=== PATIENT | male | born 1990 | race Caucasian/White ===

== ENCOUNTER 2017-10-01 18:14 | Inpatient (IN) | payer SELFPAY ==
[~2017-10-01] VITALS: Ht 182.9 cm; Wt 78.0 kg
[~2017-10-01 18:14] MED LIST: CEPH500C3 PO
[2017-10-01] MEDS ORDERED: IOHEXOL 350 MG/ML 10 ML VIAL (for RAD DIAG) IVCONTRAST ONE (18:15)
[2017-10-01 18:34] VITALS: BP 162/82; PULSE 111; RESP 16; TEMP 98.6; O2SAT 98
[2017-10-01] MEDS ORDERED: SODIUM CHLOR 0.9% 1000 ML INJ 1,000 ML IV ONE ×2 (20:37)
[2017-10-01] MEDS ORDERED: ONDANSETRON HCL 4 MG/2 ML VIAL IV PUSH ONE (20:45)
[2017-10-01] MEDS ORDERED: HYDROmorphone HCL PF 1 MG/ML VIAL IV PUSH ONE (20:45)
--- NOTE | 2017-10-01 20:49 | PD ---
HPI Chief Complaint: Eye Problems/Injury Time Seen by Provider: 20:33 Travel History International Travel<30 days: No Contact w/Intl Traveler<30days: No Traveled to known affect area: No History of Present Illness HPI Patient is a 27-year-old male presenting to emerge department for evaluation of right eye pain and swelling. Patient states 3 days ago he noticed a small pimple to the upper eyelid, it progressed getting larger and more painful and more erythematous. He went to [facility] 2 days ago and was admitted likely for periorbital cellulitis. They wanted to transfer him to [place] per his report, he reports that he did not want to go to [place] so he left [place] and presented here. Patient has paper with him that reports he was on doxycycline and ampicillin. He left AMA yesterday afternoon and has not had any antibiotics in 24 hours. He reports his pain is 8 out of 10, it is aching and throbbing. He denies any documented fevers but reports chills. Symptom onset was sudden, symptoms are severe. He denies any significant pain with eye movement, he states he cannot open his eyelid at all. He denies any IV drug use. He further denies any significant past medical history. [facility] Past Medical History Medical History: Denies Significant Hx Diminished Hearing: No ?: Not Social History Alcohol Use: Yes (OCCASIONAL) Tobacco Use: Yes (1/2 PPD) Substance Use: No (PT DENIES) Allergies-Medications (Allergen,Severity, Reaction): Coded Allergies: No Known Allergies (Verified Allergy, Unknown, 10/01/17) Reported Meds & Prescriptions Reported Meds & Active Scripts Active No Active Prescriptions or Reported Medications Review of Systems Except as stated in HPI: all other systems reviewed are Neg General / Constitutional: Positive: Chills Eyes: Positive: Drainage, Redness, Pain HENT: No: Headaches Cardiovascular: Positive: Tachycardia, No: Chest Pain or Discomfort Respiratory: No: Shortness of Breath Gastrointestinal: No: Nausea, Vomiting, Abdominal Pain Physical Exam Narrative GENERAL: Well-developed, well-nourished, alert male. Appears comfortable, no acute distress. SKIN: Warm and dry. HEAD: Atraumatic. Normocephalic. EYES: Pupils equal and round. No scleral icterus. No injection or drainage. Right upper lower eyelids are edematous and erythematous. There is significant fluctuance noted to the right upper eyelid with scant purulent drainage noted on bandage. Tender to palpation. Cannot manually open eyelid due to swelling. Mild erythema noted to right cheek. ENT: No nasal bleeding or discharge. Mucous membranes pink and moist. NECK: Trachea midline. No JVD. CARDIOVASCULAR: Regular rate and rhythm. RESPIRATORY: No accessory muscle use. Clear to auscultation. Breath sounds equal bilaterally. GASTROINTESTINAL: Abdomen soft, non-tender, nondistended. Hepatic and splenic margins not palpable. MUSCULOSKELETAL: Extremities without clubbing, cyanosis, or edema. No obvious deformities. NEUROLOGICAL: Awake and alert. No obvious cranial nerve deficits. Motor grossly within normal limits. Five out of 5 muscle strength in the arms and legs. Normal speech. PSYCHIATRIC: Appropriate mood and affect; insight and judgment normal. Data Data Last Documented VS Vital Signs Date Time Temp Pulse Resp B/P (MAP) Pulse Ox O2 Delivery O2 Flow Rate FiO2 10/01/17 22:42 16 98 Room Air 10/01/17 22:42 83 116/65 (82) 10/01/17 18:34 98.6 Orders Orders Sepsis Workup Initiated (10/01/17 ) Complete Blood Count With Diff (10/01/17 20:37) Comprehensive Metabolic Panel (10/01/17 20:37) Prothrombin Time / Inr (Pt) (10/01/17 20:37) Act Partial Throm Time (Ptt) (10/01/17 20:37) Lactic Acid Sepsis Protocol (10/01/17 20:37) Blood Culture (10/01/17 20:37) Ecg Monitoring (10/01/17 20:37) Iv Access Insert/Monitor (10/01/17 20:37) Oximetry (10/01/17 20:37) Ondansetron Inj (Zofran Inj) (10/01/17 20:45) Sodium Chlor 0.9% 1000 Ml Inj (Ns 1000 M (10/01/17 20:37) Sodium Chlor 0.9% 1000 Ml Inj (Ns 1000 M (10/01/17 20:37) Wound Culture And Gram Stain (10/01/17 20:37) Ct Orbits W Iv Contrast (10/01/17 ) Hydromorphone Pf Inj (Dilaudid Pf Inj) (10/01/17 21:45) Vancomycin Inj (Vancomycin Inj) (10/01/17 22:30) Piperacil-Tazo 4.5 Gm Premix (Zosyn 4.5 (10/01/17 22:30) Iohexol 350 Inj (Omnipaque 350 Inj) (10/01/17 18:15) Hydromorphone Pf Inj (Dilaudid Pf Inj) (10/02/17 00:00) Vancomycin Consult Pharmacy (Vancomycin (10/02/17 00:30) Piperacil-Tazo 4.5 Gm Premix (Zosyn 4.5 (10/02/17 04:00) Acetamin-Hydrocod 325-10 Mg ([place] 10-32 (10/02/17 00:30) Naloxone Inj (Narcan Inj) (10/02/17 00:30) Admit To Inpatient (10/02/17 ) Vital Signs (Adult) Q4H (10/02/17 00:20) Activity Oob Ad Gudelia (10/02/17 00:20) Diet Regular Basic (10/02/17 Breakfast) Sodium Chlor 0.9% 1000 Ml Inj (Ns 1000 M (10/02/17 01:00) Sodium Chloride 0.9% Flush (Ns Flush) (10/02/17 00:30) Sodium Chloride 0.9% Flush (Ns Flush) (10/02/17 09:00) Comprehensive Metabolic Panel (10/03/17 06:00) Complete Blood Count With Diff (10/03/17 06:00) Scd Bilateral/Knee High [place].BID (10/02/17 00:20) Naloxone Inj (Narcan Inj) (10/02/17 00:30) Docusate Sodium-Senna (Yara-Colace) (10/02/17 09:00) Magnesium Hydroxide Liq (Milk Of Magnesi (10/02/17 00:30) Sennosides (Senokot) (10/02/17 00:30) Bisacodyl Supp (Dulcolax Supp) (10/02/17 00:30) Lactulose Liq (Lactulose Liq) (10/02/17 00:30) Inpatient Certification (10/02/17 ) Acetamin-Hydrocod 325-5 Mg ([place] 5-325 (10/02/17 00:30) Admit Order (Ed Use Only) (10/02/17 00:25) Labs Laboratory Tests Test 10/01/17 21:30 White Blood Count 14.2 TH/MM3 Red Blood Count 4.36 MIL/MM3 Hemoglobin 12.1 GM/DL Hematocrit 35.3 % Mean Corpuscular Volume 80.9 FL Mean Corpuscular Hemoglobin 27.7 PG Mean Corpuscular Hemoglobin Concent 34.2 % Red Cell Distribution Width 13.9 % Platelet Count 395 TH/MM3 Mean Platelet Volume 7.4 FL Neutrophils (%) (Auto) 65.5 % Lymphocytes (%) (Auto) 22.6 % Monocytes (%) (Auto) 9.4 % Eosinophils (%) (Auto) 1.9 % Basophils (%) (Auto) 0.6 % Neutrophils # (Auto) 9.3 TH/MM3 Lymphocytes # (Auto) 3.2 TH/MM3 Monocytes # (Auto) 1.3 TH/MM3 Eosinophils # (Auto) 0.3 TH/MM3 Basophils # (Auto) 0.1 TH/MM3 CBC Comment DIFF FINAL Differential Comment Prothrombin Time 10.5 SEC Prothromb Time International Ratio 1.0 RATIO Activated Partial Thromboplast Time 27.0 SEC Blood Urea Nitrogen 10 MG/DL Creatinine 0.85 MG/DL Random Glucose 91 MG/DL Total Protein 8.4 GM/DL Albumin 3.4 GM/DL Calcium Level 9.1 MG/DL Alkaline Phosphatase 103 U/L Aspartate Amino Transf (AST/SGOT) 22 U/L Alanine Aminotransferase (ALT/SGPT) 40 U/L Total Bilirubin 0.2 MG/DL Sodium Level 137 MEQ/L Potassium Level 4.1 MEQ/L Chloride Level 101 MEQ/L Carbon Dioxide Level 28.2 MEQ/L Anion Gap 8 MEQ/L Estimat Glomerular Filtration Rate 108 ML/MIN Lactic Acid Level 0.7 mmol/L MDM Medical Decision Making Medical Screen Exam Complete: Yes Emergency Medical Condition: Yes Interpretation(s) Vital Signs Date Time Temp Pulse Resp B/P (MAP) Pulse Ox O2 Delivery O2 Flow Rate FiO2 10/01/17 18:34 98.6 111 16 162/82 (108 98 Differential Diagnosis Abscess versus cellulitis versus periorbital cellulitis versus anabolic abnormality versus other Narrative Course Patient is a 27-year-old male presenting to the emergency department for evaluation of right eye pain and swelling. Edema to the right upper eyelid appears consistent with an abscess. There is significant fluctuance noted. Labs and imaging ordered and pending. Medications ordered for pain. CBC with a white count of 14.2. Chemistry is unremarkable, lactic acid 0.7 CT scan shows large subcutaneous abscess in the soft tissues superficial to the right orbit. No significant edema or inflammation is identified in the orbit or around the extraocular musculature. Abscess is described as a multiloculated abscess in the sub-cutaneous fat measuring 4.7 x 1.8 cm across. Abscess was drained, please see procedure report. Wound culture collected and pending. Patient was given additional dose of pain medicine Patient was started on vancomycin and Zosyn. [facility] paged for admission. Discussed with Dr. Brady who accepted admission. Patient was admitted with preseptal cellulitis/sepsis. Procedures Procedure Narrative After the risks and benefits were discussed the following procedure was performed: INCISION AND DRAINAGE OF ABSCESS: The area was prepped and was sterilely draped. A subcutaneous wheal of 1 % Xylocaine with a total number 1 mL was used to anesthetize the area. The area was properly anesthetized. A number 11 scalpel was used to make a 1 -cm incision across the area of the abscess. Cultures were obtained. The abscess was drained an irrigated with normal saline. Sterile dressing applied. Patient advised to have packing removed in two days. Sepsis Criteria SIRS Criteria (2 or more): Heart rate over 90, WBC > 35471, < 4000 or > 10% bands Sepsis Criteria (SIRS+source): Infect source susp/known Diagnosis Primary Impression: Sepsis Qualified Codes: A41.9 - Sepsis, unspecified organism Additional Impression: Preseptal cellulitis of right eye Admitting Information Admitting Physician Requests: Admit Scripts No Active Prescriptions or Reported Meds Condition: Pema Gómez INSTALLATION ENGINEER October 01, 2017 20:49
[2017-10-01] MEDS ORDERED: HYDROmorphone HCL PF 0.5 MG/0.5 ML SYRINGE IV PUSH ONE (21:45)
[2017-10-01 21:49] LABS: AUTOMATED NEUTROPHIL # 9.3 TH/MM3 (1.8-7.7); BASOPHIL # 0.1 TH/MM3 (0-0.2); BASOPHIL % 0.6 % (0.0-2.0); EOSINOPHIL # 0.3 TH/MM3 (0-0.4); EOSINOPHIL % 1.9 % (0.0-4.0); HEMATOCRIT 35.3 % (39.0-51.0); HEMOGLOBIN 12.1 GM/DL (13.0-17.0); LYMPH % 22.6 % (9.0-44.0); LYMPHOCYTE # 3.2 TH/MM3 (1.0-4.8); MEAN CELL VOLUME 80.9 FL (80.0-100.0); MEAN CORPUSCULAR HEMOGLOBIN 27.7 PG (27.0-34.0); MEAN CORPUSCULAR HGB CONC 34.2 % (32.0-36.0); MEAN PLATELET VOLUME 7.4 FL (7.0-11.0); MONO % 9.4 % (0.0-8.0); MONOCYTE # 1.3 TH/MM3 (0-0.9); NEUT % 65.5 % (16.0-70.0); PLATELET COUNT 395 TH/MM3 (150-450); RED BLOOD COUNT 4.36 MIL/MM3 (4.50-5.90); RED CELL DISTRIBUTION WIDTH 13.9 % (11.6-17.2); WHITE BLOOD COUNT 14.2 TH/MM3 (4.0-11.0)
--- NOTE | 2017-10-01 21:53 | PD ---
Physical Exam Narrative I, Dr. Aguilar, have reviewed the advance practice practitioner's documentation and am in agreement, met with the patient face to face, made the diagnosis, and the medical decision making was done by me. *My assessment and Findings: Abscess vs. orbital cellulitis 27yo M with marked right eye edema and redness for a few days. Pt said it started out like a bug bite and was admitted to [facility]. As per patient, pt had IV antibiotics and was there for about 24 hours when they told him that they need to transfer him to [place] for ophthalmology or he can sign out AMA and come here. Pt does not want to go to [place] signed out AMA. Denies any trauma to eye. Labs reviewed, leukocytosis at 14.2. Lactic acid normal. Pt was initially tachycardic and covered with broad spectrum antibiotics. CT facial showed large subcutaneous abscess in the soft tissue superficial to right orbit. No significant edema or inflammation is identified in the orbit or around the extraocular musculature. I&D performed by my HIGH SCHOOL HISTORY TEACHER. Given the significance of it, will admit for sepsis and IV antibiotics and ophthalmology consult. Data Data Last Documented VS Vital Signs Date Time Temp Pulse Resp B/P (MAP) Pulse Ox O2 Delivery O2 Flow Rate FiO2 10/01/17 22:42 16 98 Room Air 10/01/17 22:42 83 116/65 (82) 10/01/17 18:34 98.6 Orders Orders Sepsis Workup Initiated (10/01/17 ) Complete Blood Count With Diff (10/01/17 20:37) Comprehensive Metabolic Panel (10/01/17 20:37) Prothrombin Time / Inr (Pt) (10/01/17 20:37) Act Partial Throm Time (Ptt) (10/01/17 20:37) Lactic Acid Sepsis Protocol (10/01/17 20:37) Blood Culture (10/01/17 20:37) Ecg Monitoring (10/01/17 20:37) Iv Access Insert/Monitor (10/01/17 20:37) Oximetry (10/01/17 20:37) Ondansetron Inj (Zofran Inj) (10/01/17 20:45) Sodium Chlor 0.9% 1000 Ml Inj (Ns 1000 M (10/01/17 20:37) Sodium Chlor 0.9% 1000 Ml Inj (Ns 1000 M (10/01/17 20:37) Wound Culture And Gram Stain (10/01/17 20:37) Ct Orbits W Iv Contrast (10/01/17 ) Hydromorphone Pf Inj (Dilaudid Pf Inj) (10/01/17 21:45) Vancomycin Inj (Vancomycin Inj) (10/01/17 22:30) Piperacil-Tazo 4.5 Gm Premix (Zosyn 4.5 (10/01/17 22:30) Iohexol 350 Inj (Omnipaque 350 Inj) (10/01/17 18:15) Vancomycin Consult Pharmacy (Vancomycin (10/02/17 00:30) Piperacil-Tazo 4.5 Gm Premix (Zosyn 4.5 (10/02/17 04:00) Acetamin-Hydrocod 325-10 Mg ([place] 10-32 (10/02/17 00:30) Naloxone Inj (Narcan Inj) (10/02/17 00:30) Admit To Inpatient (10/02/17 ) Vital Signs (Adult) Q4H (10/02/17 00:20) Activity Oob Ad Gudelia (10/02/17 00:20) Diet Regular Basic (10/02/17 Breakfast) Sodium Chlor 0.9% 1000 Ml Inj (Ns 1000 M (10/02/17 01:00) Sodium Chloride 0.9% Flush (Ns Flush) (10/02/17 00:30) Sodium Chloride 0.9% Flush (Ns Flush) (10/02/17 09:00) Comprehensive Metabolic Panel (10/03/17 06:00) Complete Blood Count With Diff (10/03/17 06:00) Scd Bilateral/Knee High [place].BID (10/02/17 00:20) Naloxone Inj (Narcan Inj) (10/02/17 00:30) Docusate Sodium-Senna (Yara-Colace) (10/02/17 09:00) Magnesium Hydroxide Liq (Milk Of Magnesi (10/02/17 00:30) Sennosides (Senokot) (10/02/17 00:30) Bisacodyl Supp (Dulcolax Supp) (10/02/17 00:30) Lactulose Liq (Lactulose Liq) (10/02/17 00:30) Inpatient Certification (10/02/17 ) Acetamin-Hydrocod 325-5 Mg ([place] 5-325 (10/02/17 00:30) Admit Order (Ed Use Only) (10/02/17 00:25) Labs Laboratory Tests Test 10/01/17 21:30 White Blood Count 14.2 TH/MM3 Red Blood Count 4.36 MIL/MM3 Hemoglobin 12.1 GM/DL Hematocrit 35.3 % Mean Corpuscular Volume 80.9 FL Mean Corpuscular Hemoglobin 27.7 PG Mean Corpuscular Hemoglobin Concent 34.2 % Red Cell Distribution Width 13.9 % Platelet Count 395 TH/MM3 Mean Platelet Volume 7.4 FL Neutrophils (%) (Auto) 65.5 % Lymphocytes (%) (Auto) 22.6 % Monocytes (%) (Auto) 9.4 % Eosinophils (%) (Auto) 1.9 % Basophils (%) (Auto) 0.6 % Neutrophils # (Auto) 9.3 TH/MM3 Lymphocytes # (Auto) 3.2 TH/MM3 Monocytes # (Auto) 1.3 TH/MM3 Eosinophils # (Auto) 0.3 TH/MM3 Basophils # (Auto) 0.1 TH/MM3 CBC Comment DIFF FINAL Differential Comment Prothrombin Time 10.5 SEC Prothromb Time International Ratio 1.0 RATIO Activated Partial Thromboplast Time 27.0 SEC Blood Urea Nitrogen 10 MG/DL Creatinine 0.85 MG/DL Random Glucose 91 MG/DL Total Protein 8.4 GM/DL Albumin 3.4 GM/DL Calcium Level 9.1 MG/DL Alkaline Phosphatase 103 U/L Aspartate Amino Transf (AST/SGOT) 22 U/L Alanine Aminotransferase (ALT/SGPT) 40 U/L Total Bilirubin 0.2 MG/DL Sodium Level 137 MEQ/L Potassium Level 4.1 MEQ/L Chloride Level 101 MEQ/L Carbon Dioxide Level 28.2 MEQ/L Anion Gap 8 MEQ/L Estimat Glomerular Filtration Rate 108 ML/MIN Lactic Acid Level 0.7 mmol/L [facility] Supervised Visit with SINDY: Yes Diagnosis Primary Impression: Preseptal cellulitis of right eye Admitting Information Admitting Physician Requests: Admit Scripts No Active Prescriptions or Reported Meds Jennifer Aguilar DO October 01, 2017 21:53
[2017-10-01 22:01] LABS: ALBUMIN 3.4 GM/DL (3.4-5.0); AST (GOT) 22 U/L (15-37); BICARBONATE 28.2 MEQ/L (21.0-32.0); BLOOD UREA NITROGEN 10 MG/DL (7-18); CALCIUM 9.1 MG/DL (8.5-10.1); CHLORIDE 101 MEQ/L (98-107); CREATININE 0.85 MG/DL (0.60-1.30); GLOMERULAR FILTRATION RATE 108 ML/MIN (>89); GLUCOSE,RANDOM 91 MG/DL (74-106); SODIUM (NA) 137 MEQ/L (136-145)
[2017-10-01 22:02] LABS: PROTHROMBIN TIME - PATIENT 10.5 SEC (9.8-11.6)
[2017-10-01 22:03] LABS: ALT (GPT) 40 U/L (12-78)
[2017-10-01 22:04] LABS: ALKALINE PHOSPHATASE 103 U/L (45-117); TOTAL BILIRUBIN ADULT 0.2 MG/DL (0.2-1.0); TOTAL PROTEIN 8.4 GM/DL (6.4-8.2)
[2017-10-01] MEDS ORDERED: VANCOMYCIN INJ 1,000 MG in SODIUM CHLOR 0.9% 250 ML INJ 250 ML IV ONE (22:30)
[2017-10-01] MEDS ORDERED: PIPERACIL-TAZO 4.5 GM PREMIX 100 ML IV ONE (22:30)
[2017-10-01 22:42] VITALS: BP 116/65; PULSE 83; RESP 16; O2SAT 97; O2SAT 98
--- NOTE | 2017-10-01 23:11 | RADRPT ---
EXAM DATE/TIME: 10/01/2017 22:12 [place] COMPARISON: No previous studies available for comparison. INDICATIONS : Periorbital Cellulitis. IV CONTRAST: 70 cc Omnipaque 350 (iohexol) IV RADIATION DOSE: 22.62 CTDIvol (mGy) MEDICAL HISTORY : None SURGICAL HISTORY : None. ENCOUNTER: Initial ACUITY: 1 day PAIN SCALE: 4/10 LOCATION: Right facial TECHNIQUE: Volumetric scanning of the orbits was performed. Using automated exposure control and adjustment of the mA and/or kV according to patient size, radiation dose was kept as low as reasonably achievable t o obtain optimal diagnostic quality images. DICOM format image data is available electronically for review and comparison. FINDINGS: PRESEPTAL: There is in significant soft tissue edema and fullness anterior to the right orbit including what meseret ears to be a multiloculated abscess in the subcutaneous fat 4.7 x 1.8 cm across GLOBES: Normal shape without wall thickening. The lens is grossly intact. EXTRAOCULAR MUSCLES: Symmetric and normal thickness. ORBITAL CHRISTIAN: Intact. The greater wing of the sphenoid is intact. OPTIC NERVES: Normal size. The optic canal is not enlarged. The retroconal fat is normal in appearance. LACRIMAL GLANDS: No evidence of mass. RETROAPIACL REGION: The optic chiasm is grossly intact. The visualized portion of the cavernous sinus and brainstem is i ntact. CONCLUSION: Large subcutaneous abscess in the soft tissues superficial to the right orbit. No significant edema o r inflammation is identified in the orbit or around the extraocular musculature. Cliff Johnson MD on October 01, 2017 at 23:07 Board Certified Radiologist. This report was verified electronically.
[2017-10-02] MEDS ORDERED: HYDROmorphone HCL PF 1 MG/ML VIAL IV PUSH ONE
[2017-10-02] MEDS ORDERED: ACETAMINOPHEN/HYDROcodone 325 MG/5 MG TAB PO PRN (00:30)
[2017-10-02] MEDS ORDERED: MAGNESIUM HYDROXIDE SUSP 30 ML CUP PO PRN (00:30)
[2017-10-02] MEDS ORDERED: SODIUM CHLORIDE 0.9% FLUSH 10 ML FLUSH IV FLUSH PRN (00:30)
[2017-10-02] MEDS ORDERED: BISACODYL 10 MG SUPP RECTAL PRN (00:30)
[2017-10-02] MEDS ORDERED: LACTULOSE SYRUP 20 GM/30 ML CUP PO PRN (00:30)
[2017-10-02] MEDS ORDERED: SENNOSIDES 8.6 MG TAB PO PRN (00:30)
[2017-10-02] MEDS ORDERED: Vancomycin Consult Pharmacy 1 EA OTHER SCH (00:30)
[2017-10-02] MEDS ORDERED: NALOXONE HCL 0.4 MG/ML AMP IV PUSH PRN ×2 (00:30)
[2017-10-02] MEDS ORDERED: HYDROmorphone HCL PF 0.5 MG/0.5 ML SYRINGE IV PUSH ONE (00:45)
[2017-10-02] MEDS: SODIUM CHLOR 0.9% 1000 ML INJ 1,000 ML IV SCH ×2 (01:00→12:46)
--- NOTE | 2017-10-02 01:41 | HHI.HP ---
HPI Service [facility] Primary Care Physician No Primary Care Physician Admission Diagnosis PRESEPTAL CELLULITIS/SEPSIS Diagnoses: Travel History International Travel<30 Days: No Contact w/Intl Traveler <30 Da: No Traveled to Known Affected Are: No History of Present Illness 27-year-old male with no significant past medical history who presents with a 2 day history of constant right forehead pain, nonradiating, with closure of right eyelid unable to open. Patient denies any injury or pimple at this location. Patient denies any pain with right or left gaze. Patient apparently was seen at [facility], and he says they told him that he could either be transferred to [place] so he could see an clock and watch hands dipper, or discharge AGAINST MEDICAL ADVICE and come here; he chose the latter. Patient denies any fevers, chills, chest pain, shortness of breath, nausea, vomiting, lightheadedness, dizziness. In the ER, right superficial abscess over the right eyebrow has been incised and drained. Cultures have been sent. Review of Systems Except as stated in HPI: all other systems reviewed are Neg Past Family Social History Past Medical History Patient denies any past medical history Past Surgical History Left arm artery surgery secondary to injury Reported Medications Patient denies taking any medications. Allergies: Coded Allergies: No Known Allergies (Verified Allergy, Unknown, 10/01/17) Family History Patient reports both parents are healthy Social History Patient smokes one half pack per day for the past 4 years. Denies alcohol. Patient drinks marijuana on a regular basis. Denies any cocaine or IV drug use. Physical Exam Vital Signs Vital Signs Date Time Temp Pulse Resp B/P (MAP) Pulse Ox O2 Delivery O2 Flow Rate FiO2 10/01/17 22:42 16 98 Room Air 10/01/17 22:42 83 16 116/65 (82) 97 Room Air 10/01/17 18:34 98.6 111 16 162/82 (108) 98 Physical Exam GENERAL: This is a well-nourished, well-developed patient, in no apparent distress. Alert and oriented 3. SKIN: No rashes, ecchymoses or lesions. Cool and dry. HEAD: Atraumatic. Normocephalic. No temporal or scalp tenderness. EYES: Left pupil is reactive. Right eyelid edematous, closed shut, with erythema and induration over the entire right eyebrow, status post incision and drainage. ENT: Nose without bleeding, purulent drainage or septal hematoma. Throat without erythema, tonsillar hypertrophy or exudate. Uvula midline. Airway patent. NECK: Trachea midline. No JVD or lymphadenopathy. Supple, nontender, no meningeal signs. CARDIOVASCULAR: Regular rate and rhythm without murmurs, gallops, or rubs. RESPIRATORY: Clear to auscultation. Breath sounds equal bilaterally. No wheezes , rales, or rhonchi. GASTROINTESTINAL: Abdomen soft, non-tender, nondistended. No hepato-splenomegaly , or palpable masses. No guarding. MUSCULOSKELETAL: Extremities without clubbing, cyanosis, or edema. No joint tenderness, effusion, or edema noted. No calf tenderness. Negative Homans sign bilaterally. NEUROLOGICAL: Awake and alert. Cranial nerves II through XII intact. Motor and sensory grossly within normal limits. Five out of 5 muscle strength in all muscle groups. Normal speech. Laboratory Laboratory Tests Test 10/01/17 21:30 White Blood Count 14.2 Red Blood Count 4.36 Hemoglobin 12.1 Hematocrit 35.3 Mean Corpuscular Volume 80.9 Mean Corpuscular Hemoglobin 27.7 Mean Corpuscular Hemoglobin Concent 34.2 Red Cell Distribution Width 13.9 Platelet Count 395 Mean Platelet Volume 7.4 Neutrophils (%) (Auto) 65.5 Lymphocytes (%) (Auto) 22.6 Monocytes (%) (Auto) 9.4 Eosinophils (%) (Auto) 1.9 Basophils (%) (Auto) 0.6 Neutrophils # (Auto) 9.3 Lymphocytes # (Auto) 3.2 Monocytes # (Auto) 1.3 Eosinophils # (Auto) 0.3 Basophils # (Auto) 0.1 CBC Comment DIFF FINAL Differential Comment Prothrombin Time 10.5 Prothromb Time International Ratio 1.0 Activated Partial Thromboplast Time 27.0 Blood Urea Nitrogen 10 Creatinine 0.85 Random Glucose 91 Total Protein 8.4 Albumin 3.4 Calcium Level 9.1 Alkaline Phosphatase 103 Aspartate Amino Transf (AST/SGOT) 22 Alanine Aminotransferase (ALT/SGPT) 40 Total Bilirubin 0.2 Sodium Level 137 Potassium Level 4.1 Chloride Level 101 Carbon Dioxide Level 28.2 Anion Gap 8 Estimat Glomerular Filtration Rate 108 Lactic Acid Level 0.7 Date/Time Source Procedure Growth Status 10/01/17 21:55 Blood Peripheral Aerobic Blood Culture Pending Received 10/01/17 21:55 Blood Peripheral Anaerobic Blood Culture Pending Received 10/02/17 00:20 Wound Face Gram Stain Pending Received 10/02/17 00:20 Wound Face Wound Culture Pending Received Result Diagram: 10/01/17212910/01/172129 Imaging Last Impressions Orbit CT 10/01/17 0000 Signed Impressions: Service Date/Time: Sunday, October 01, 2017 22:12 - CONCLUSION: Large subcutaneous abscess in the soft tissues superficial to the right orbit. No significant edema or inflammation is identified in the orbit or around the extraocular musculature. MD Sarah Godoy VTE Risk Assessment Sarah VTE Risk Assessment: No/Low Risk (score <= 1) Caprini Risk Assessment Model Point Value = 1 Point Value = 2 Point Value = 3 Point Value = 5 Age 41-60 Minor surgery BMI > 25 kg/m2 Swollen legs Varicose veins or History of unexplained or recurrent spontaneous Oral contraceptives or hormone replacement Sepsis (< 1 month) Serious lung disease, including pneumonia (< 1 month) Abnormal pulmonary function Acute myocardial infarction Congestive heart failure (< 1 month) History of inflammatory bowel disease Medical patient at bed rest Age 61-74 Arthroscopic surgery Major open surgery (> 45 min) Laparoscopic surgery (> 45 min) Malignancy Confined to bed (> 72 hours) Immobilizing plaster cast Central venous access Age >= 75 History of VTE Family history of VTE Factor V Leiden Prothrombin [id number] Lupus anticoagulant Anticardiolipin antibodies Elevated serum homocysteine Heparin-induced thrombocytopenia Other congenital or acquired thrombophilia Stroke (< 1 month) Elective arthroplasty Hip, pelvis, or leg fracture Acute spinal cord injury (< 1 month) Prophylaxis Regimen Total Risk Factor Score Risk Level Prophylaxis Regimen 0-1 Low Early ambulation 2 Moderate Order ONE of the following: *Sequential Compression Device (SCD) *Heparin 5000 units SQ BID 3-4 Higher Order ONE of the following medications: *Heparin 5000 units SQ TID *Enoxaparin/Lovenox 40 mg SQ daily (WT < 150 kg, CrCl > 30 mL/min) *Enoxaparin/Lovenox 30 mg SQ daily (WT < 150 kg, CrCl > 10-29 mL/min) *Enoxaparin/Lovenox 30 mg SQ BID (WT < 150 kg, CrCl > 30 mL/min) AND/OR *Sequential Compression Device (SCD) 5 or more Highest Order ONE of the following medications: *Heparin 5000 units SQ TID (Preferred with Epidurals) *Enoxaparin/Lovenox 40 mg SQ daily (WT < 150 kg, CrCl > 30 mL/min) *Enoxaparin/Lovenox 30 mg SQ daily (WT < 150 kg, CrCl > 10-29 mL/min) *Enoxaparin/Lovenox 30 mg SQ BID (WT < 150 kg, CrCl > 30 mL/min) AND *Sequential Compression Device (SCD) Assessment and Plan Assessment and Plan //Sepsis //Right sided facial abscess superficial to right orbit. Suspected MRSA. -CT shows superficial abscess over the right eyebrow, however no sign of orbital cellulitis. Nonetheless in a very dangerous location and will require monitoring. -Leukocytosis, tachycardia. Right subcutaneous abscess overlying the right orbit. = Status post incision and drainage. Follow-up cultures = Broad-spectrum antibiotics vancomycin to cover MRSA, Zosyn to cover gram negatives and anaerobes. //Tobaccoism. Cessation counseling provided. //Marijuana use. Cessation counseling provided Discussed Condition With Patient, nurse, ED physician. Physician Certification 2 Midnight Certification Type: Admission for Inpatient Services Order for Inpatient Services The services are ordered in accordance with Medicare regulations or non- Medicare payer requirements, as applicable. In the case of services not specified as inpatient-only, they are appropriately provided as inpatient services in accordance with the 2-midnight benchmark. Estimated LOS (days): 2 days is the estimated time the patient will need to remain in the hospital, assuming treatment plan goals are met and no additional complications. Post-Hospital Plan: Home Erick Brady MD October 02, 2017 01:41
[2017-10-02 03:06] VITALS: BP 115/68; PULSE 58; RESP 18; TEMP 98.3; O2SAT 93
[2017-10-02] MEDS: PIPERACIL-TAZO 4.5 GM PREMIX 100 ML IV SCH ×4 (04:51→22:08)
[2017-10-02 08:06] VITALS: BP 121/71; PULSE 85; RESP 16; TEMP 97.2; O2SAT 96
[2017-10-02] MEDS: SODIUM CHLORIDE 0.9% FLUSH 10 ML FLUSH IV FLUSH SCH ×2 (08:13→22:02)
[2017-10-02] MEDS: ACETAMINOPHEN/HYDROcodone 325 MG/10 MG TAB PO PRN ×4 (08:13→22:08)
[2017-10-02] MEDS: DOCUSATE SODIUM 50 MG/SENNA 8.6 MG TAB PO SCH ×2 (08:13→22:02)
[2017-10-02] MEDS: VANCOMYCIN INJ 1,250 MG in SODIUM CHLOR 0.9% 250 ML INJ 250 ML IV SCH ×2 (08:14→17:42)
[2017-10-02 11:25] VITALS: BP 124/65; PULSE 71; RESP 16; TEMP 98.1; O2SAT 97
--- NOTE | 2017-10-02 12:20 | PD.ID.CON ---
History of Present Illness Service ID Consult Requested By Kadi Aden Reason for Consult orbital abscess Primary Care Physician No Primary Care Physician Diagnoses: History of Present Illness 27 yo male w/o past med problems developped some pimple like lesion over the R lateral upper lid area started about 4-5 days ago No preceding trauma history Appears initially as bug bite he went to [facility] where he was diagnosed with periorbital cellulitis but he left AMA He came back with worsening swelling, redness, pain Minimla drainage Denies fever CT showed preseptal subcutaneous multiloculated abscess 4.6x 1.8 cm Blood clx obttained in [facility] on 09/29 are negative as of today Abcess Gstain : many WBC, GPC in pairs Review of Systems Except as stated in HPI: all other systems reviewed are Neg Past Family Social History Allergies: Coded Allergies: No Known Allergies (Verified Allergy, Unknown, 10/01/17) Past Medical History none Past Surgical History upper exrtermity artery repair 2/2 injury Active Ordered Medications Medications where reviewed in EMR Antibiotics Include: zaynab garcia Family History Patient reports both parents are healthy Social History Patient smokes one half pack per day for the past 4 years. Denies alcohol. Patient drinks marijuana on a regular basis. Denies any cocaine or IV drug use. Physical Exam Vital Signs Vital Signs Date Time Temp Pulse Resp B/P (MAP) Pulse Ox O2 Delivery O2 Flow Rate FiO2 10/02/17 11:25 98.1 71 16 124/65 (84) 97 10/02/17 08:06 97.2 85 16 121/71 (88) 96 10/02/17 03:06 98.3 58 18 115/68 (84) 93 10/01/17 22:42 16 98 Room Air 10/01/17 22:42 83 16 116/65 (82) 97 Room Air 10/01/17 18:34 98.6 111 16 162/82 (108) 98 Physical Exam CONSTITUTIONAL/GENERAL: This is an adequately nourished patient, in no apparent distress. TUBES/LINES/DRAINS: SKIN: No jaundice, rashes, or lesions. Skin temperature appropriate. Not diaphoretic. HEAD: Atraumatic. Normocephalic. EYES: Pupils equal and round and reactive. Extraocular motions intact. No scleral icterus. No injection or drainage. Fundi not examined. OD: shut tightly with marked erythema and edema and fluctuant large lump on the lateral aspectof the superior lid ENT: Hearing grossly normal. Nose without bleeding or purulent drainage. Oral mucosa without visible erythema, exudates, masses, or lesions. NECK: Trachea midline. Supple, nontender. CARDIOVASCULAR: Regular rate and rhythm without murmurs, gallops, or rubs. No JVD. Peripheral pulses symmetric. RESPIRATORY/CHEST: Symmetric, unlabored respirations. Clear to auscultation. Breath sounds equal bilaterally. No wheezes, rales, or rhonchi. GASTROINTESTINAL: Abdomen soft, non-tender, nondistended. No hepato-splenomegaly , or palpable masses. No guarding. Bowel sounds present. GENITOURINARY: Without palpable bladder distension. MUSCULOSKELETAL: Extremities without clubbing, cyanosis, or edema. No joint tenderness or effusion noted. No calf tenderness. No mottling or clubbing. LYMPHATICS: No palpable cervical sunbmandibular or supraclavicular adenopathy. NEUROLOGICAL: Awake and alert. Motor and sensory grossly within normal limits. Follows commands. Clear speech . Moves all extremities. PSYCHIATRIC: No obvious anxiety/depression. no apparent hallucinations or other psychotic thought process. Laboratory Laboratory Tests Test 10/01/17 21:30 White Blood Count 14.2 Red Blood Count 4.36 Hemoglobin 12.1 Hematocrit 35.3 Mean Corpuscular Volume 80.9 Mean Corpuscular Hemoglobin 27.7 Mean Corpuscular Hemoglobin Concent 34.2 Red Cell Distribution Width 13.9 Platelet Count 395 Mean Platelet Volume 7.4 Neutrophils (%) (Auto) 65.5 Lymphocytes (%) (Auto) 22.6 Monocytes (%) (Auto) 9.4 Eosinophils (%) (Auto) 1.9 Basophils (%) (Auto) 0.6 Neutrophils # (Auto) 9.3 Lymphocytes # (Auto) 3.2 Monocytes # (Auto) 1.3 Eosinophils # (Auto) 0.3 Basophils # (Auto) 0.1 CBC Comment DIFF FINAL Differential Comment Prothrombin Time 10.5 Prothromb Time International Ratio 1.0 Activated Partial Thromboplast Time 27.0 Blood Urea Nitrogen 10 Creatinine 0.85 Random Glucose 91 Total Protein 8.4 Albumin 3.4 Calcium Level 9.1 Alkaline Phosphatase 103 Aspartate Amino Transf (AST/SGOT) 22 Alanine Aminotransferase (ALT/SGPT) 40 Total Bilirubin 0.2 Sodium Level 137 Potassium Level 4.1 Chloride Level 101 Carbon Dioxide Level 28.2 Anion Gap 8 Estimat Glomerular Filtration Rate 108 Lactic Acid Level 0.7 Date/Time Source Procedure Growth Status 10/01/17 21:55 Blood Peripheral Aerobic Blood Culture - Preliminary NO GROWTH IN 1 DAY Resulted 10/01/17 21:55 Blood Peripheral Anaerobic Blood Culture - Preliminary NO GROWTH IN 1 DAY Resulted 10/02/17 00:20 Wound Face Gram Stain - Final Resulted 10/02/17 00:20 Wound Face Wound Culture Pending Resulted Result Diagram: 10/01/17212910/01/172129 Imaging Last Impressions Orbit CT 10/01/17 0000 Signed Impressions: Service Date/Time: Sunday, October 01, 2017 22:12 - CONCLUSION: Large subcutaneous abscess in the soft tissues superficial to the right orbit. No significant edema or inflammation is identified in the orbit or around the extraocular musculature. Cliff Johnson MD Assessment and Plan Assessment and Plan Large subcutaneous periorbital (preseptal) abscess in the soft tissues superficial to the right orbit, likely staph No preceding trauma history - agrree with ophthalmology consult - cont vancomycin - cont zosyn for now while final clx Jeanine Wright MD October 02, 2017 12:20
[2017-10-02 15:58] VITALS: BP 119/73; PULSE 75; RESP 18; TEMP 97.8; O2SAT 97
--- NOTE | 2017-10-02 16:14 | HHI.PR ---
Subjective Remarks Follow-up right preseptal abscess/cellulitis October 02, 2017-patient seen and examined, currently afebrile; reports some right eye pain. Unable to open right eye Objective Vitals Vital Signs Date Time Temp Pulse Resp B/P (MAP) Pulse Ox O2 Delivery O2 Flow Rate FiO2 10/02/17 15:58 97.8 75 18 119/73 (88) 97 10/02/17 11:25 98.1 71 16 124/65 (84) 97 10/02/17 08:06 97.2 85 16 121/71 (88) 96 10/02/17 03:06 98.3 58 18 115/68 (84) 93 10/01/17 22:42 16 98 Room Air 10/01/17 22:42 83 16 116/65 (82) 97 Room Air 10/01/17 18:34 98.6 111 16 162/82 (108) 98 I/O 10/01/17 10/01/17 10/01/17 10/02/17 10/02/17 10/02/17 07:00 15:00 23:00 07:00 15:00 23:00 Intake Total 100 ml 1362.5 ml Balance 100 ml 1362.5 ml Intake IV Total 100 ml 1362.5 ml Result Diagram: 10/01/17212910/01/17 2130 Imaging Last Impressions Orbit CT 10/01/17 0000 Signed Impressions: Service Date/Time: Sunday, October 01, 2017 22:12 - CONCLUSION: Large subcutaneous abscess in the soft tissues superficial to the right orbit. No significant edema or inflammation is identified in the orbit or around the extraocular musculature. Cliff Johnson MD Objective Remarks GENERAL: NAD SKIN: Warm and dry. HEAD: Normocephalic. EYES: No scleral icterus.right septal abscess with surrounding erythema NECK: Supple, trachea midline. No JVD or lymphadenopathy. CARDIOVASCULAR: Regular rate and rhythm without murmurs, gallops, or rubs. RESPIRATORY: Breath sounds equal bilaterally. No accessory muscle use. GASTROINTESTINAL: Abdomen soft, non-tender, nondistended. MUSCULOSKELETAL: No cyanosis, or edema. BACK: Nontender without obvious deformity. No CVA tenderness. A/P Problem List: (1) Sepsis ICD Code: A41.9 - Sepsis, unspecified organism Status: Acute (2) Preseptal cellulitis of right eye ICD Code: L03.213 - Periorbital cellulitis Status: Acute Assessment and Plan 27-year-old man with Sepsis secondary to preseptal abscess Currently on Zosyn and vancomycin Monitor culture Preseptal right eye abscess/cellulitis CT orbits right eye noted a review of large subcutaneous abscess Consult infectious disease specialist Consult ophthalmology Continue vancomycin and Zosyn Monitor cultures Pain management accordingly History of marijuana use Patient was extensively counseled against DVT prophylaxis: Low risk for VTE Transfer to [facility] Problem Qualifiers (1) Sepsis: Qualified Codes: A41.9 - Sepsis, unspecified organism Jose Luis Mcgowan MD October 02, 2017 16:14
[2017-10-02] MEDS ORDERED: TEMAZEPAM 15 MG CAP PO PRN (16:15)
[2017-10-02] MEDS ORDERED: ACETAMINOPHEN 325 MG TAB PO PRN (16:15)
[2017-10-02] MEDS ORDERED: ONDANSETRON HCL 4 MG/2 ML VIAL IV PUSH PRN (16:15)
[2017-10-02 19:31] VITALS: BP 119/66; PULSE 85; RESP 18; TEMP 97.8; O2SAT 98
[2017-10-02 23:06] VITALS: BP 108/57; PULSE 84; RESP 18; TEMP 97.9; O2SAT 97
[2017-10-03] MEDS: VANCOMYCIN INJ 1,250 MG in SODIUM CHLOR 0.9% 250 ML INJ 250 ML IV SCH ×3 (03:25→18:31)
[2017-10-03] MEDS: ACETAMINOPHEN/HYDROcodone 325 MG/10 MG TAB PO PRN ×3 (03:26→16:53)
[2017-10-03 03:54] VITALS: BP 102/80; PULSE 75; RESP 18; TEMP 97.8; O2SAT 98
[2017-10-03] MEDS: PIPERACIL-TAZO 4.5 GM PREMIX 100 ML IV SCH ×2 (06:41→10:41)
[2017-10-03] MEDS: SODIUM CHLORIDE 0.9% FLUSH 10 ML FLUSH IV FLUSH SCH (08:44)
[2017-10-03] MEDS: DOCUSATE SODIUM 50 MG/SENNA 8.6 MG TAB PO SCH (08:44)
[2017-10-03] MEDS ORDERED: PHARMACY ORDERED LAB ONE ×2 (08:45→16:45)
[2017-10-03 09:00] VITALS: BP 119/72; PULSE 70; RESP 16; TEMP 97.9; O2SAT 96
--- NOTE | 2017-10-03 10:22 | HHI.PR ---
Subjective Remarks Follow-up right preseptal abscess/cellulitis October 02, 2017-patient seen and examined, currently afebrile; reports some right eye pain. Unable to open right eye October 03, 2017-patient seen and examined, reports some improvement of right eye pain and states he can slightly open it. Afebrile Objective Vitals Vital Signs Date Time Temp Pulse Resp B/P (MAP) Pulse Ox O2 Delivery O2 Flow Rate FiO2 10/03/17 09:00 97.9 70 16 119/72 (88) 96 10/03/17 04:26 21 10/03/17 03:54 97.8 75 18 102/80 (87) 98 10/02/17 23:06 97.9 84 18 108/57 (74) 97 10/02/17 19:31 97.8 85 18 119/66 (83) 98 10/02/17 15:58 97.8 75 18 119/73 (88) 97 10/02/17 11:25 98.1 71 16 124/65 (84) 97 I/O 10/02/17 10/02/17 10/02/17 10/03/17 10/03/17 10/03/17 07:00 15:00 23:00 07:00 15:00 23:00 Intake Total 100 ml 1362.5 ml 462.5 ml 100 ml Balance 100 ml 1362.5 ml 462.5 ml 100 ml Intake IV Total 100 ml 1362.5 ml 462.5 ml 100 ml Result Diagram: 10/01/17212910/01/172129 Imaging Last Impressions Orbit CT 10/01/17 0000 Signed Impressions: Service Date/Time: Sunday, October 01, 2017 22:12 - CONCLUSION: Large subcutaneous abscess in the soft tissues superficial to the right orbit. No significant edema or inflammation is identified in the orbit or around the extraocular musculature. Cliff Johnson MD Objective Remarks GENERAL: NAD SKIN: Warm and dry. HEAD: Normocephalic. EYES: No scleral icterus.right septal abscess with surrounding erythema NECK: Supple, trachea midline. No JVD or lymphadenopathy. CARDIOVASCULAR: Regular rate and rhythm without murmurs, gallops, or rubs. RESPIRATORY: Breath sounds equal bilaterally. No accessory muscle use. GASTROINTESTINAL: Abdomen soft, non-tender, nondistended. MUSCULOSKELETAL: No cyanosis, or edema. BACK: Nontender without obvious deformity. No CVA tenderness. A/P Problem List: (1) Sepsis ICD Code: A41.9 - Sepsis, unspecified organism Status: Acute (2) Preseptal cellulitis of right eye ICD Code: L03.213 - Periorbital cellulitis Status: Acute Assessment and Plan 27-year-old man with Sepsis secondary to preseptal abscess-resolved Currently on Zosyn and vancomycin Monitor culture Preseptal right eye abscess/cellulitis CT orbits right eye noted a review of large subcutaneous abscess Appreciate input from infectious disease specialist Ophthalmology consultation pending Continue vancomycin and Zosyn Monitor cultures Pain management accordingly History of marijuana use Patient was extensively counseled against DVT prophylaxis: Low risk for VTE Transfer to [facility] Problem Qualifiers (1) Sepsis: Qualified Codes: A41.9 - Sepsis, unspecified organism Jose Luis Mcgowan MD October 03, 2017 10:22
[2017-10-03 11:41] VITALS: BP 112/72; PULSE 90; RESP 16; TEMP 98.2; O2SAT 99
--- NOTE | 2017-10-03 12:29 | PD.CONS ---
History of Present Illness Service Ophthalmology Consult Requested By Reason for Consult right upper eyelid abscess Primary Care Physician No Primary Care Physician Diagnoses: History of Present Illness 27yo M presenting to ED yesterday with significant right upper eyelid/eyebrow edema and redness for a few days. Pt initially went to [facility] and was admitted there for IV antibiotics - after 24 hours they told him that they needed to transfer him to [place] for ophthalmology. He signed out AMA and came here instead. Denies any trauma to eye. CT Orbits showed multiloculated abscess in the subcutaneous fat superficial to right orbit 4.7 x 1.8 cm. No sign of orbital cellulitis on CT. Abscess was drained by ED physician. Currently on IV Zosyn and Vancomycin. Culture positive for MRSA. Pt feels some improvement in pain and swelling since yesterday. Still cannot open his right eye much. No significant ocular history. Past Family Social History Allergies: Coded Allergies: No Known Allergies (Verified Allergy, Unknown, 10/01/17) Physical Exam Vital Signs Vital Signs Date Time Temp Pulse Resp B/P (MAP) Pulse Ox O2 Delivery O2 Flow Rate FiO2 10/03/17 11:41 98.2 90 16 112/72 (85) 99 10/03/17 09:00 97.9 70 16 119/72 (88) 96 10/03/17 04:26 21 10/03/17 03:54 97.8 75 18 102/80 (87) 98 10/02/17 23:06 97.9 84 18 108/57 (74) 97 10/02/17 19:31 97.8 85 18 119/66 (83) 98 10/02/17 15:58 97.8 75 18 119/73 (88) 97 Physical Exam Va sc at near OD 20/25, OS 20/20 EOM full OU, no diplopia CVF unable OD due to eyelid edema Pupils 2-1 no APD OU IOP normal to palpation OU Anterior exam OD - 4x2 cm upper eyelid abscess with edema and erythema, C/S W&Q, K clear, AC deep, pupil round, lens clear OS - normal eyelid, C/S W&Q, K clear, AC deep, pupil round, lens clear Laboratory Date/Time Source Procedure Growth Status 10/01/17 21:55 Blood Peripheral Aerobic Blood Culture - Preliminary NO GROWTH IN 2 DAYS Resulted 10/01/17 21:55 Blood Peripheral Anaerobic Blood Culture - Preliminary NO GROWTH IN 2 DAYS Resulted 10/02/17 00:20 Wound Face Gram Stain - Final Resulted 10/02/17 00:20 Wound Culture - Preliminary S. Aureus Mrsa Resulted Result Diagram: 10/01/17212910/01/172129 Assessment and Plan Problem List: (1) Abscess of right upper eyelid ICD Codes: H00.031 - Abscess of right upper eyelid Plan: s/p I&D by the ED on 10/02. Culture positive for MRSA. Continue IV Vancomycin. No sign of orbital involvement on exam. May need repeat I&D if no significant improvement in the next few days. Will follow. Ashley Caballero MD October 03, 2017 12:29
[2017-10-03 13:32] LABS: AUTOMATED NEUTROPHIL # 5.2 TH/MM3 (1.8-7.7); BASOPHIL # 0.1 TH/MM3 (0-0.2); BASOPHIL % 1.1 % (0.0-2.0); EOSINOPHIL # 0.5 TH/MM3 (0-0.4); EOSINOPHIL % 5.6 % (0.0-4.0); HEMATOCRIT 36.5 % (39.0-51.0); HEMOGLOBIN 12.3 GM/DL (13.0-17.0); LYMPH % 21.9 % (9.0-44.0); LYMPHOCYTE # 1.8 TH/MM3 (1.0-4.8); MEAN CELL VOLUME 81.4 FL (80.0-100.0); MEAN CORPUSCULAR HEMOGLOBIN 27.5 PG (27.0-34.0); MEAN CORPUSCULAR HGB CONC 33.8 % (32.0-36.0); MEAN PLATELET VOLUME 7.4 FL (7.0-11.0); MONO % 9.1 % (0.0-8.0); MONOCYTE # 0.8 TH/MM3 (0-0.9); NEUT % 62.3 % (16.0-70.0); PLATELET COUNT 408 TH/MM3 (150-450); RED BLOOD COUNT 4.48 MIL/MM3 (4.50-5.90); WHITE BLOOD COUNT 8.4 TH/MM3 (4.0-11.0)
[2017-10-03 13:58] LABS: ALBUMIN 3.2 GM/DL (3.4-5.0); AST (GOT) 23 U/L (15-37); BICARBONATE 25.9 MEQ/L (21.0-32.0); BLOOD UREA NITROGEN 8 MG/DL (7-18); CALCIUM 8.9 MG/DL (8.5-10.1); CHLORIDE 106 MEQ/L (98-107); CREATININE 0.83 MG/DL (0.60-1.30); GLOMERULAR FILTRATION RATE 111 ML/MIN (>89); GLUCOSE,RANDOM 87 MG/DL (74-106); SODIUM (NA) 139 MEQ/L (136-145)
[2017-10-03 13:59] LABS: ALT (GPT) 37 U/L (12-78)
[2017-10-03 14:01] LABS: ALKALINE PHOSPHATASE 84 U/L (45-117); TOTAL BILIRUBIN ADULT 0.2 MG/DL (0.2-1.0); TOTAL PROTEIN 7.8 GM/DL (6.4-8.2)
[2017-10-03 15:52] VITALS: BP 118/65; PULSE 68; RESP 16; TEMP 98; O2SAT 98
--- NOTE | 2017-10-03 16:07 | HHI.IDPN ---
Subjective Subjective Remarks pain same swelling improved now able to slightly open his R eye clx positive for MRSA no fevers no new c/o Antibiotics zposyn vanco Allergies: Coded Allergies: No Known Allergies (Verified Allergy, Unknown, 10/01/17) Objective . Vital Signs Date Time Temp Pulse Resp B/P (MAP) Pulse Ox O2 Delivery O2 Flow Rate FiO2 10/03/17 15:52 98.0 68 16 118/65 (82) 98 10/03/17 11:41 98.2 90 16 112/72 (85) 99 10/03/17 09:00 97.9 70 16 119/72 (88) 96 10/03/17 04:26 21 10/03/17 03:54 97.8 75 18 102/80 (87) 98 10/02/17 23:06 97.9 84 18 108/57 (74) 97 10/02/17 19:31 97.8 85 18 119/66 (83) 98 10/02/17 15:58 97.8 75 18 119/73 (88) 97 10/03/17 10/03/17 10/04/17 15:00 23:00 07:00 Intake Total 930 ml Balance 930 ml Intake Oral 480 ml IV Total 450 ml . Laboratory Tests Test 10/01/17 21:30 10/03/17 13:00 White Blood Count 14.2 TH/MM3 8.4 TH/MM3 Red Blood Count 4.36 MIL/MM3 4.48 MIL/MM3 Hemoglobin 12.1 GM/DL 12.3 GM/DL Hematocrit 35.3 % 36.5 % Mean Corpuscular Volume 80.9 FL 81.4 FL Mean Corpuscular Hemoglobin 27.7 PG 27.5 PG Mean Corpuscular Hemoglobin Concent 34.2 % 33.8 % Red Cell Distribution Width 13.9 % 14.0 % Platelet Count 395 TH/MM3 408 TH/MM3 Mean Platelet Volume 7.4 FL 7.4 FL Neutrophils (%) (Auto) 65.5 % 62.3 % Lymphocytes (%) (Auto) 22.6 % 21.9 % Monocytes (%) (Auto) 9.4 % 9.1 % Eosinophils (%) (Auto) 1.9 % 5.6 % Basophils (%) (Auto) 0.6 % 1.1 % Neutrophils # (Auto) 9.3 TH/MM3 5.2 TH/MM3 Lymphocytes # (Auto) 3.2 TH/MM3 1.8 TH/MM3 Monocytes # (Auto) 1.3 TH/MM3 0.8 TH/MM3 Eosinophils # (Auto) 0.3 TH/MM3 0.5 TH/MM3 Basophils # (Auto) 0.1 TH/MM3 0.1 TH/MM3 CBC Comment DIFF FINAL DIFF FINAL Differential Comment Laboratory Tests Test 10/01/17 21:30 10/03/17 13:00 Blood Urea Nitrogen 10 MG/DL 8 MG/DL Creatinine 0.85 MG/DL 0.83 MG/DL Random Glucose 91 MG/DL 87 MG/DL Total Protein 8.4 GM/DL 7.8 GM/DL Albumin 3.4 GM/DL 3.2 GM/DL Calcium Level 9.1 MG/DL 8.9 MG/DL Alkaline Phosphatase 103 U/L 84 U/L Aspartate Amino Transf (AST/SGOT) 22 U/L 23 U/L Alanine Aminotransferase (ALT/SGPT) 40 U/L 37 U/L Total Bilirubin 0.2 MG/DL 0.2 MG/DL Sodium Level 137 MEQ/L 139 MEQ/L Potassium Level 4.1 MEQ/L 4.0 MEQ/L Chloride Level 101 MEQ/L 106 MEQ/L Carbon Dioxide Level 28.2 MEQ/L 25.9 MEQ/L Anion Gap 8 MEQ/L 7 MEQ/L Estimat Glomerular Filtration Rate 108 ML/MIN 111 ML/MIN Lactic Acid Level 0.7 mmol/L Microbiology Date/Time Source Procedure Growth Status 10/01/17 21:55 Blood Peripheral Aerobic Blood Culture - Preliminary NO GROWTH IN 2 DAYS Resulted 10/01/17 21:55 Blood Peripheral Anaerobic Blood Culture - Preliminary NO GROWTH IN 2 DAYS Resulted 10/01/17 21:30 Blood Peripheral Aerobic Blood Culture - Preliminary NO GROWTH IN 2 DAYS Resulted 10/01/17 21:30 Blood Peripheral Anaerobic Blood Culture - Preliminary NO GROWTH IN 2 DAYS Resulted 10/02/17 00:20 Wound Face Gram Stain - Final Resulted 10/02/17 00:20 Wound Culture - Preliminary S. Aureus Mrsa Resulted Imaging Last Impressions Orbit CT 10/01/17 0000 Signed Impressions: Service Date/Time: Sunday, October 01, 2017 22:12 - CONCLUSION: Large subcutaneous abscess in the soft tissues superficial to the right orbit. No significant edema or inflammation is identified in the orbit or around the extraocular musculature. Cliff Johnson MD Physical Exam CONSTITUTIONAL/GENERAL: This is an adequately nourished patient, in no apparent distress. TUBES/LINES/DRAINS: SKIN: No jaundice, rashes, or lesions. Skin temperature appropriate. Not diaphoretic. EYES: Pupils equal and round and reactive. Extraocular motions intact. No scleral icterus. No injection or drainage. Fundi not examined. OD: shut tightly with marked erythema and edema and fluctuant large lump on the lateral aspectof the superior lid ENT: Hearing grossly normal. Nose without bleeding or purulent drainage. Oral mucosa without visible erythema, exudates, masses, or lesions. RESPIRATORY/CHEST: Symmetric, unlabored respirations. MUSCULOSKELETAL: Extremities without clubbing, cyanosis, or edema. NEUROLOGICAL: Awake and alert. Motor and sensory grossly within normal limits. Follows commands. Clear speech . Moves all extremities. PSYCHIATRIC:calm and cooperative Assessment & Plan Remarks Large subcutaneous periorbital (preseptal) abscess in the soft tissues superficial to the right orbit, MRSA - sp b/s I+D in ER -seen by ophthalmology: recom'd conservative mngmnt No preceding trauma history - cont vancomycin - dc zosyn - anticipate eventually transition to oral abx Jeanine Gao MD October 03, 2017 16:07
== END 2017-10-03 18:49 | disposition left against medical advice (07) | DRG 872 ==
LOC: NEPD 18:14 → NEDA 10-02 00:27 → NEPFCDU 10-02 01:42
PROVIDERS: ADMIT Hospitalist; ATTEND Hospitalist
PROC: 0H91XZZ Drainage of Face Skin, External Approach (ICD-10-PCS; principal; 2017-10-02)
DX: A41.02 Sepsis due to Methicillin resistant Staphylococcus aureus (principal); F17.210 Nicotine dependence, cigarettes, uncomplicated; L03.213 Periorbital cellulitis; H00.031 Abscess of right upper eyelid; F12.90 Cannabis use, unspecified, uncomplicated
CPT/HCPCS: 10060; 70481; 80053; 83605; 85025; 85610; 85730; 86403; 87040; 87070; 87147; 87186; 87205; 96361; 96374; 96375; J1170; J2405; J2543; J3370; J7030; J7050; Q9967